=== PATIENT | male | born 1990 | race Caucasian/White ===

== ENCOUNTER 2023-06-07 17:11 | Emergency (ER) | payer MEDICAID, OTHER ==
[~2023-06-07] VITALS: Ht 190.5 cm; Wt 90.0 kg
[2023-06-07 17:18] VITALS: BP 137/84; O2SAT 99
[2023-06-07] MEDS ORDERED: HYDR-4001 MT (23:16)
[2023-06-07 23:57] VITALS: PULSE 100; RESP 16; TEMP 98.2
== END 2023-06-08 | disposition home or self-care (01) ==
LOC: ER 17:11
DX: S92.351A Displaced fracture of fifth metatarsal bone, right foot, initial encounter for closed fracture (principal); X58.XXXA Exposure to other specified factors, initial encounter; Y93.89 Activity, other specified; Y92.89 Other specified places as the place of occurrence of the external cause; Y99.8 Other external cause status
CPT/HCPCS: 73610; 73630; 73700; 99284; Z7610